=== PATIENT | female | born 1965 | race Caucasian/White ===

== ENCOUNTER → 2024-02-03 10:26 | Outpatient (REF) | payer OTHER, SELFPAY ==
[2024-02-03 12:20] LABS: Hepatitis B Surface Antibody Positive
[2024-02-03 13:11] LABS: Rubella Low Positive
[2024-02-05 08:36] LABS: Quantiferon Mitogen minus NIL 4.25 IU/mL; Quantiferon NIL 0.02 IU/mL; Quantiferon Plus TB2 minus NIL 0.02 IU/mL (<=0.34); Quantiferon TB Gold Plus Negative (Negative)
== END ==
LOC: OHS 10:26
PROVIDERS: ATTENDING PHYSICIAN Nurse Practitioner Family
DX: Z23 Encounter for immunization (principal)
CPT/HCPCS: 36415; 86480; 86706; 86735; 86762; 86765; 86787